=== PATIENT | male | born 1975 | race Caucasian/White ===

== ENCOUNTER 2025-02-26 00:26 | Inpatient (IN) ==
[2025-02-26] MEDS ORDERED: IOPAMIDOL 100 ML BOTTLE IV ONE (00:27)
[2025-02-26 01:27] LABS: ALT/SGPT 38 U/L (<40); AST/SGOT 88 U/L (<40); Albumin/Globulin Ratio 0.7 (1.0-2.3); Alkaline Phosphatase 213 U/L (39-117); Blood Urea Nitrogen 8 mg/dL (6-20); Calcium 8.7 mg/dL (8.6-10.4); Carbon Dioxide 18 mmol/L (22-30); Chloride 110 mmol/L (96-108); Globulin 4.4 gm/dL (2.2-3.7); Glomerular Filtration Rate 109; Glucose 115 mg/dL (70-105); Potassium 3.8 mmol/L (3.3-5.1); Sodium 140 mmol/L (133-145)
[2025-02-26] MEDS: 0.9 % SODIUM CHLORIDE 1,000 ML IV ONE (01:30)
[2025-02-26 01:51] LABS: Alcohol, Blood < 10.1 mg/dL; Alcohol,Blood < 0.010 gm/dL (<0.010)
[2025-02-26 01:52] LABS: Basophils # (Auto) 0.02 K/mcL (0.00-0.30); Basophils % (Auto) 0.6 % (0.0-2.0); Eosinophils # (Auto) 0.03 K/mcL (0.00-0.70); Eosinophils % (Auto) 0.8 % (0.0-7.0); Hematocrit 33.6 % (40.1-51.0); Hemoglobin 10.8 g/dL (13.7-17.5); Lymphocytes # (Auto) 0.97 K/mcL (1.50-4.80); Lymphocytes % (Auto) 27.1 % (15.5-49.0); Mean Cell Volume 90.3 fL (80.0-100.0); Mean Corpuscular HGB Conc 32.1 g/dL (31.0-36.0); Monocytes # (Auto) 0.27 K/mcL (0.10-0.90); Monocytes % (Auto) 7.5 % (1.0-12.0); Neutrophils % (Auto) 63.7 % (38.0-78.0); Platelet Count 66 K/mcL (140-440); RBC 3.72 M/mcL (4.63-6.08); Red Cell Distribution Width 28.4 % (11.5-14.5); WBC 3.6 K/mcL (4.5-11.0)
[2025-02-26] MEDS: LACTULOSE 20 GM/30 ML ORAL.SOL PO ONE (06:08)
[2025-02-26 07:10] LABS: Appearance,Urine CLEAR (Clear); Bilirubin,Urine Negative (Negative); Color,Urine AMBER; Glucose,Urine (UA) Negative (Negative); Ketones,Urine Negative (Negative); Leukocyte Esterase,Urine Negative /uL (Negative); Nitrate,Urine Negative (Negative); Protein,Urine Negative (Negative); Specific Gravity,Urine 1.014 (1.000-1.035); Urine Blood Negative (Negative)
[2025-02-26 07:18] LABS: Amphetamine Screen,Urine None detected; Barbiturate Screen,Urine None detected; Benzodiazepines Screen,Urine None detected; Cannabinoid Screen,Urine Suspect Positive; Cocaine Screen,Urine None detected; Fentanyl, Urine Screen None Detected; Opiate Screen,Urine None detected; Oxycodone, Urine Screen None detected; Phencyclidine Screen,Urine None detected
[2025-02-26] MEDS ORDERED: HYDROcodone/APAP (PP) 5/325MG TABLET (#4) PO SCH (10:45)
[2025-02-26] MEDS ORDERED: BISACODYL 10 MG SUPP.RECT PR PRN (10:45)
[2025-02-26] MEDS ORDERED: BISACODYL 5 MG TABLET PO PRN (10:45)
[2025-02-26] MEDS ORDERED: IPRATROPIUM/ALBUTEROL 3 ML AMPUL.NEB NEB PRN (11:04)
[2025-02-26] MEDS ORDERED: ONDANSETRON 4 MG/2 ML VIAL IV PRN (11:04)
[2025-02-26] MEDS ORDERED: QUEtiapine 25 MG TABLET PO PRN (11:20)
[2025-02-26] MEDS ORDERED: HYDROcodone/APAP 5/325MG TABLET PO PRN (11:22)
[2025-02-26] MEDS: QUEtiapine 25 MG TABLET PO PRN (12:04)
[2025-02-26] MEDS: LACTULOSE 20 GM/30 ML ORAL.SOL PO SCH (14:58)
[2025-02-26] MEDS: SPIRONOLACTONE 25 MG TABLET PO SCH (14:59)
[2025-02-26] MEDS: 0.9 % SODIUM CHLORIDE 10 ML SYRINGE IV SCH (15:02)
[2025-02-26] MEDS: FERROUS SULFATE 325 MG TABLET PO SCH (17:03)
[2025-02-26] MEDS ORDERED: DOCUSATE SODIUM 100 MG CAPSULE PO SCH (21:00)
[2025-02-27 06:47] LABS: ALT/SGPT 31 U/L (<40); AST/SGOT 76 U/L (<40); Albumin 2.7 gm/dL (3.2-5.2); Albumin/Globulin Ratio 0.7 (1.0-2.3); Alkaline Phosphatase 135 U/L (39-117); Bilirubin,Total 3.9 mg/dL (0.1-1.0); Blood Urea Nitrogen 10 mg/dL (6-20); Calcium 8.6 mg/dL (8.6-10.4); Carbon Dioxide 18 mmol/L (22-30); Chloride 113 mmol/L (96-108); Globulin 3.8 gm/dL (2.2-3.7); Glomerular Filtration Rate 104; Glucose 80 mg/dL (70-105); Potassium 3.8 mmol/L (3.3-5.1); Sodium 142 mmol/L (133-145)
[2025-02-27] MEDS: MULTIVIT,THER IRON,CA,FA & MIN 1 TABLET PO SCH (08:02)
[2025-02-27] MEDS: PANTOPRAZOLE 40 MG TABLET PO SCH (08:03)
[2025-02-27 08:14] LABS: Basophils # (Auto) 0.02 K/mcL (0.00-0.30); Basophils % (Auto) 0.7 % (0.0-2.0); Eosinophils # (Auto) 0.03 K/mcL (0.00-0.70); Hematocrit 31.9 % (40.1-51.0); Hemoglobin 10.1 g/dL (13.7-17.5); Lymphocytes # (Auto) 0.86 K/mcL (1.50-4.80); Mean Corpuscular HGB Conc 31.7 g/dL (31.0-36.0); Monocytes # (Auto) 0.28 K/mcL (0.10-0.90); Monocytes % (Auto) 9.8 % (1.0-12.0); Neutrophils % (Auto) 58.2 % (38.0-78.0); Platelet Count 58 K/mcL (140-440); RBC 3.43 M/mcL (4.63-6.08); Red Cell Distribution Width 28.3 % (11.5-14.5); WBC 2.9 K/mcL (4.5-11.0)
[2025-02-28 06:49] LABS: ALT/SGPT 32 U/L (<40); AST/SGOT 78 U/L (<40); Albumin 2.7 gm/dL (3.2-5.2); Albumin/Globulin Ratio 0.7 (1.0-2.3); Alkaline Phosphatase 153 U/L (39-117); Bilirubin,Total 3.2 mg/dL (0.1-1.0); Blood Urea Nitrogen 11 mg/dL (6-20); Calcium 8.3 mg/dL (8.6-10.4); Carbon Dioxide 19 mmol/L (22-30); Chloride 108 mmol/L (96-108); Globulin 3.8 gm/dL (2.2-3.7); Glomerular Filtration Rate 109; Glucose 92 mg/dL (70-105); Potassium 3.6 mmol/L (3.3-5.1); Sodium 137 mmol/L (133-145)
[2025-02-28 07:34] LABS: Basophils # (Auto) 0.03 K/mcL (0.00-0.30); Eosinophils # (Auto) 0.03 K/mcL (0.00-0.70); Hematocrit 31.3 % (40.1-51.0); Hemoglobin 10.4 g/dL (13.7-17.5); Lymphocytes # (Auto) 0.92 K/mcL (1.50-4.80); Lymphocytes % (Auto) 29.5 % (15.5-49.0); Mean Cell Volume 90.5 fL (80.0-100.0); Mean Corpuscular HGB Conc 33.2 g/dL (31.0-36.0); Monocytes # (Auto) 0.28 K/mcL (0.10-0.90); Neutrophils % (Auto) 58.5 % (38.0-78.0); Platelet Count 56 K/mcL (140-440); RBC 3.46 M/mcL (4.63-6.08); Red Cell Distribution Width 27.9 % (11.5-14.5); WBC 3.1 K/mcL (4.5-11.0)
[2025-02-28] MEDS: LACTULOSE 20 GM/30 ML ORAL.SOL PR ONE (09:16)
[2025-02-28] MEDS: SODIUM BICARBONATE 650 MG TABLET PO SCH (16:23)
[2025-03-01 05:48] LABS: ALT/SGPT 33 U/L (<40); AST/SGOT 77 U/L (<40); Albumin 2.8 gm/dL (3.2-5.2); Albumin/Globulin Ratio 0.8 (1.0-2.3); Alkaline Phosphatase 144 U/L (39-117); Bilirubin,Direct 1.8 mg/dL (<0.3); Bilirubin,Total 3.6 mg/dL (0.1-1.0); Blood Urea Nitrogen 10 mg/dL (6-20); Calcium 8.4 mg/dL (8.6-10.4); Carbon Dioxide 19 mmol/L (22-30); Chloride 114 mmol/L (96-108); Globulin 3.7 gm/dL (2.2-3.7); Glomerular Filtration Rate 109; Glucose 91 mg/dL (70-105); Lactate Dehydrogenase 145 U/L (135-225); Potassium 3.7 mmol/L (3.3-5.1); Sodium 143 mmol/L (133-145); Triglycerides 69 mg/dL (<150); Uric Acid 7.6 mg/dL (2.5-8.0)
[2025-03-01 06:32] LABS: INR 1.7 (0.9-1.1); Prothrombin Time 20.8 sec (11.9-14.5)
[2025-03-01] MEDS: LACTULOSE 20 GM/30 ML ORAL.SOL PO ONE (09:26)
[2025-03-01] MEDS: ENOXAPARIN 40 MG/0.4 ML SYRINGE SQ SCH (09:26)
[2025-03-01] MEDS: LACTULOSE 20 GM/30 ML ORAL.SOL PO PRN (11:37)
[2025-03-01] MEDS: SODIUM BICARBONATE 650 MG TABLET PO SCH (15:24)
[2025-03-02 04:10] VITALS: TEMP 98.2
[2025-03-02 06:06] LABS: ALT/SGPT 32 U/L (<40); AST/SGOT 76 U/L (<40); Albumin 2.9 gm/dL (3.2-5.2); Albumin/Globulin Ratio 0.8 (1.0-2.3); Alkaline Phosphatase 150 U/L (39-117); Bilirubin,Direct 1.9 mg/dL (<0.3); Bilirubin,Total 4.1 mg/dL (0.1-1.0); Blood Urea Nitrogen 10 mg/dL (6-20); Calcium 8.3 mg/dL (8.6-10.4); Carbon Dioxide 19 mmol/L (22-30); Chloride 108 mmol/L (96-108); Globulin 3.7 gm/dL (2.2-3.7); Glomerular Filtration Rate 109; Glucose 89 mg/dL (70-105); Lactate Dehydrogenase 161 U/L (135-225); Phosphorous 4.3 mg/dL (2.5-4.5); Potassium 3.9 mmol/L (3.3-5.1); Sodium 136 mmol/L (133-145); Triglycerides 64 mg/dL (<150); Uric Acid 7.5 mg/dL (2.5-8.0)
[2025-03-02 08:04] LABS: Basophils # (Auto) 0.03 K/mcL (0.00-0.30); Basophils % (Auto) 0.8 % (0.0-2.0); Eosinophils # (Auto) 0.04 K/mcL (0.00-0.70); Hemoglobin 10.5 g/dL (13.7-17.5); Lymphocytes % (Auto) 27.9 % (15.5-49.0); Mean Cell Volume 90.9 fL (80.0-100.0); Mean Corpuscular HGB Conc 32.8 g/dL (31.0-36.0); Monocytes # (Auto) 0.35 K/mcL (0.10-0.90); Monocytes % (Auto) 8.9 % (1.0-12.0); Neutrophils % (Auto) 60.9 % (38.0-78.0); Platelet Count 52 K/mcL (140-440); Red Cell Distribution Width 27.3 % (11.5-14.5)
[2025-03-02 11:50] LABS: WBC 3.9 K/mcL (4.5-11.0)
[2025-03-02 11:51] LABS: RBC 3.52 M/mcL (4.63-6.08)
[2025-03-02 13:58] VITALS: O2SAT 100
== END 2025-03-02 14:20 | DRG 442 ==
LOC: ED 00:26 → ICU 11:10
PROVIDERS: ADMIT Internal Medicine; ATTEND Internal Medicine